=== PATIENT | female | born 1950 | race Caucasian/White ===

== ENCOUNTER 2017-06-21 09:59 | Outpatient (CLI) ==
[2017-06-21 10:13] LABS: BASOPHILS # (AUTO) 0.1 K/uL (0-0.2); BASOPHILS % (AUTO) 0.9 % (0.0-3.0); EOSINOPHILS # (AUTO) 0.3 K/ul (0.0-0.7); EOSINOPHILS % (AUTO) 3.3 % (0.0-7.0); HEMATOCRIT 39.3 % (37.0-47.0); IMMATURE GRANULOCYTE % (AUTO) 0.1 % (0.0-5.0); LYMPHOCYTES % (AUTO) 37.4 (10.0-50.0); MEAN CORPUSCULAR HEMOGLOBIN 31.5 pg (27.0-31.0); MEAN CORPUSCULAR HGB CONC 35.6 (31.8-35.4); MEAN CORPUSCULAR VOLUME 88.3 fl (81.0-99.0); MONOCYTES # (AUTO) 0.7 K/uL (0.4-2.0); MONOCYTES % (AUTO) 8.2 (0-10); NEUTROPHILS % (AUTO) 50.1; PLATELET COUNT 237 10^3/uL (140-440); RED BLOOD COUNT 4.45 10^6/ul (4.20-5.40); WHITE BLOOD COUNT 7.96 K/ul (4.6-10.2)
[2017-06-21 10:55] LABS: ALBUMIN 3.4 g/dL (3.4-5.0); ALBUMIN/GLOBULIN RATIO 0.77; ANION GAP 14.4; BILIRUBIN,TOTAL 0.61 mg/dL (0.00-1.20); BUN/CREATININE RATIO 13.48; CALCIUM 9.4 mg/dL (8.2-10.2); CREATININE 0.89 mg/dL (0.60-1.30); POTASSIUM 3.4 mmol/L (3.5-5.10); TOTAL PROTEIN 7.8 g/dL (5.8-8.1)
== END 2017-06-21 10:00 | disposition home or self-care (01) ==
LOC: LAB 09:59
PROVIDERS: ATTEND Physician Assistant
DX: R31.0 Gross hematuria (principal); E03.9 Hypothyroidism, unspecified
CPT/HCPCS: 36415; 80053; 84443; 85025

== ENCOUNTER 2017-11-19 08:48 | Outpatient (CLI) | END 2017-11-19 08:49 | disposition home or self-care (01) | LOC: LAB 08:48 | PROVIDERS: ATTEND Physician Assistant | DX: E88.81 Metabolic syndrome and other insulin resistance (principal); K76.0 Fatty (change of) liver, not elsewhere classified; E03.9 Hypothyroidism, unspecified; K75.81 Nonalcoholic steatohepatitis (NASH); I10 Essential (primary) hypertension; Z79.899 Other long term (current) drug therapy; Z68.38 Body mass index [BMI] 38.0-38.9, adult | CPT/HCPCS: 36415; 80053; 80061; 80074; 83036; 84443; 85027 ==

== ENCOUNTER 2018-01-08 08:47 | Outpatient (CLI) | END 2018-01-08 08:48 | disposition home or self-care (01) | LOC: LAB 08:47 | PROVIDERS: ATTEND Physician Assistant | DX: E03.9 Hypothyroidism, unspecified (principal) | CPT/HCPCS: 36415; 84443 ==

== ENCOUNTER 2019-02-08 14:59 | Emergency (ER) ==
[2019-02-08 15:13] VITALS: BP 215/134; TEMP 98.9; BMI 37.9
[2019-02-08] MEDS ORDERED: BOOSTRIX IM ONE (15:30)
--- NOTE | 2019-02-08 15:34 | ED.PDOC ---
General ED Provider: Dr. FITO BRAXTON Chief Complaint: Bite Stated Complaint: At a family get together; nieces dogs bit her. Numerous bites R thigh and L calf Time Seen by Physician: 15:20 Mode of Arrival: Walk-In Information Source: Patient Primary Care Provider: FAROOQ ROBBINS Nursing and Triage Documentation Reviewed and Agree: Yes Does patient meet sepsis criteria?: No System Inflammatory Response Syndrome: Not Applicable Sepsis Protocol: For patient's 13 years and over: Temp is 96.8 and below OR 101 and greater Pulse >90 BPM Resp >20/minute Acutely Altered Mental Status Are patient's symptoms suggestive of a new infection, such as: -Pneumonia -Skin, Soft Tissue -Endocarditis -UTI -Bone, Joint Infection -Implantable Device -Acute Abdominal Infection -Wound Infection -Meningitis -Blood Stream Catheter Infection -Unknown Review of Systems - Review Of Systems Constitutional: Reports: No symptoms Respiratory: Reports: No symptoms Musculoskeletal: Reports: Muscle pain (associated with numerous puncture wounds , dog bite) Neurological: Reports: No symptoms All Other Systems: Reviewed and Negative Past Medical History - Past Medical History Previously Healthy: Yes Endocrine: Reports: None Cardiovascular: Reports: None Respiratory: Reports: None Hematological: Reports: None Gastrointestinal: Reports: None Genitourinary: Reports: None Neuro/Psych: Reports: None Musculoskeletal: Reports: None Cancer: Reports: None Last Menstrual Period: unknown - Surgical History General Surgical History: Reports: Unknown - Family History Family History: Reports: Unknown - Social History Smoking Status: Never smoker Hx Substance Use: No Alcohol Screening: None - Immunizations Tetanus Shot up to Date: No Physical Exam - Physical Exam Appearance: Well-appearing Ill-appearing: None Pain Distress: None Respiratory: Airway patent, Breath sounds clear, Breath sounds equal, Respirations nonlabored Cardiovascular: RRR, Pulses normal Musculoskeletal: Normal strength, ROM intact Skin: Warm, Dry, Normal color (Except developing eccchymosis at various bite sites, R anterior thigh and L postero lateral calf) Neurological: Alert, Oriented Psychiatric: Affect appropriate, Mood appropriate Critical Care Note - Critical Care Note Total Time (mins): 25 Course - Course Orders, Labs, Meds: Orders Category Date Time Status Wound care [ED WOUND CARE] .ONCE EMERGENCY 02/08/19 15:53 Active Bacitracin/Polymyxin B Sulfate [Polysporin 0.9 gm MEDS 02/08/19 15:53 Discontinued Packet] 1 each TP ONCE STA Diphth,Pertuss(Acell),Tet Vac [Boostrix] MEDS 02/08/19 15:30 Discontinued 0.5 ml IM .ONCE ONE Medications Discontinued Medications Generic Name Dose Route Start Last Admin Trade Name Jahaira PRN Reason Stop Dose Admin Bacitracin/Polymyxin B Sulfate 1 each 02/08/19 15:53 02/08/19 16:15 Polysporin 0.9 Gm Packet TP 02/08/19 15:54 1 each ONCE STA Administration Diphtheria/Pertussis/Tetanus Vacc 0.5 ml 02/08/19 15:30 02/08/19 15:39 Boostrix IM 02/08/19 15:31 0.5 ml .ONCE ONE Administration Vital Signs: Temp Pulse Resp BP Pulse Ox 02/08/19 15:00 98.9 F 116 H 20 215/134 H 96 Departure - Departure Time of Disposition: 16:21 Disposition: HOME SELF-CARE Discharge Problem: Dog bite of left calf Qualifiers: Encounter type: initial encounter Qualified Code(s): S81.852A - Open bite, left lower leg, initial encounter; W54.0XXA - Bitten by dog, initial encounter Dog bite of right thigh Qualifiers: Encounter type: initial encounter Qualified Code(s): S71.151A - Open bite, right thigh, initial encounter; W54.0XXA - Bitten by dog, initial encounter Instructions: Animal Bite (ED) Condition: Good Pt referred to PMD for follow-up: Yes (Follow up; make appointment) IPMP verified?: No (Not pertinent) Additional Instructions: Antibiotic as prescribed; follow up with primary care in 2 days for wound check. Tylenol and or Ibuprofen for discomfort. Prescriptions: Amoxicillin/Potassium Clav [Augmentin 500-125 Tablet] 1 each PO DAILY #5 tablet Allergies/Adverse Reactions: Allergies Penicillins Adverse Reaction (Verified 02/08/19 16:14) Unknown Patient states sensitivity patch tested positive; underwent desensitization treatment. Home Medications: Ambulatory Orders Amoxicillin/Potassium Clav [Augmentin 500-125 Tablet] 1 each PO DAILY #5 tablet 02/08/19 Disposition Discussed With: Patient (Discussed at length with pt; had patch testing)
[2019-02-08] MEDS ORDERED: POLYSPORIN 0.9 GM PACKET TP STA (15:53)
== END 2019-02-08 16:18 | disposition home or self-care (01) ==
LOC: ED 14:59
DX: S71.151A Open bite, right thigh, initial encounter (principal); S81.852A Open bite, left lower leg, initial encounter; W54.0XXA Bitten by dog, initial encounter
CPT/HCPCS: 90471; 90715; 99283